=== PATIENT | male | born 1990 | race American Indian/Alaskan Native ===

== ENCOUNTER 2020-11-26 01:50 | Emergency (ER) | payer OTHER ==
[2020-11-26 01:56] VITALS: BP 142/79
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
== END 2020-11-26 02:31 ==
LOC: EEVIPCON 01:50 → ED 01:50
DX: T74.11XA Adult physical abuse, confirmed, initial encounter (principal); R68.89 Other general symptoms and signs; Y08.89XA Assault by other specified means, initial encounter; Y93.89 Activity, other specified; Y92.89 Other specified places as the place of occurrence of the external cause; Y99.8 Other external cause status
CPT/HCPCS: 99282